=== PATIENT | male | born 1945 ===

== ENCOUNTER 2021-06-06 22:24 | Inpatient (IN) | payer OTHER ==
[~2021-06-06] VITALS: Ht 167.6 cm; Wt 69.7 kg
[2021-06-06 23:16] VITALS: BP 115/76
[2021-06-06] MEDS ORDERED: ACETAMINOPHEN 325 MG TABLET PO PRN (23:30)
[2021-06-06] MEDS ORDERED: POLYETHYLENE GLYCOL 17 GM PACKET PO PRN (23:30)
[2021-06-06] MEDS ORDERED: ONDANSETRON 2MG/ML, 2ML IVPush PRN (23:30)
[2021-06-06] MEDS ORDERED: BISACODYL 10 MG SUPP PR PRN (23:30)
[2021-06-06] MEDS ORDERED: hydrALAzine 20 MG/ML, 1ML IVPush PRN (23:30)
[2021-06-06] MEDS ORDERED: MORPHINE SULFATE 4 MG/ML, 1ML IVPush ONE (23:30)
[2021-06-07] MEDS ORDERED: ATOR20TA86 PO (00:10)
[2021-06-07] MEDS ORDERED: diabetic med (00:10)
[2021-06-07] MEDS: DIAZEPAM 5 MG/ML, 2ML IV PRN ×2 (00:58→17:13)
[2021-06-07] MEDS: SODIUM CHLORIDE 0.9% 1,000 ML IV SCH ×2 (00:59→13:32)
[2021-06-07 02:16] VITALS: BP 117/68
[2021-06-07] MEDS: morphine SULFATE 10 MG/ML, 1ML IVPush PRN ×3 (05:10→20:56)
[2021-06-07 05:31] LABS: BASOPHILS % (AUTO) 0 % (0-1); EOSINOPHILS % (AUTO) 2 % (1-7); LYMPHOCYTES % (AUTO) 18 % (22-44); MEAN CORPUSCULAR HEMOGLOBIN 30.8 pg (27.5-34.5); MEAN CORPUSCULAR HGB CONC 34.1 g/dL (33.2-36.2); MEAN PLATELET VOLUME 7.6 fL (7.4-10.4); MONOCYTES % (AUTO) 16 % (2-9); NEUTROPHILS % (AUTO) 64 % (42-75); PLATELET COUNT 177 x10^3/uL (130-400); RED BLOOD COUNT 3.56 x10^6/uL (4.38-5.82); RED CELL DISTRIBUTION WIDTH 13.6 % (9.4-14.8)
[2021-06-07 05:37] LABS: CHLORIDE 108 mmol/L (98-107)
[2021-06-07 05:41] LABS: ANION GAP 5 mmol/L (5-15); CALCIUM 7.8 mg/dL (8.5-10.1); CREATININE 0.96 mg/dL (0.7-1.3)
[2021-06-07] MEDS: INSULIN LISPRO 100 UNITS/ML, PEN SQ-INSULIN SCH ×5 (07:00→21:00)
[2021-06-07 08:14] VITALS: BP 101/62
[2021-06-07] MEDS: SENNA/DOCUSATE TABLET PO SCH (09:00)
[2021-06-07 14:09] VITALS: BP 120/70
[2021-06-07 18:37] VITALS: BP 123/78
[2021-06-07] MEDS ORDERED: FENTANYL PF 100 MCG/2ML ONE ×2 (19:07→19:56)
[2021-06-07] MEDS ORDERED: PROPOFOL 10 MG/ML, 20ML ONE (19:08)
[2021-06-07] MEDS ORDERED: CEFAZOLIN 1,000 MG ONE (19:08)
[2021-06-07] MEDS ORDERED: SUCCINYLCHOLINE 20 MG/ML, 10ML ONE (19:08)
[2021-06-07] MEDS ORDERED: ROCURONIUM 10 MG/ML,10ML ONE (19:08)
[2021-06-07] MEDS ORDERED: KETOROLAC 30 MG/1 ML IVPush PRN (19:30)
[2021-06-07] MEDS ORDERED: OXYcodone 5 MG/5 ML ORAL.SOL UDC PO PRN (19:30)
[2021-06-07] MEDS ORDERED: PROMETHAZINE 25 MG/ML, 1ML IVPush PRN (19:30)
[2021-06-07] MEDS ORDERED: MEPERIDINE/PF 25MG/0.5ML IVPush PRN (19:30)
[2021-06-07] MEDS ORDERED: HYDROcodone/APAP 7.5-325MG/15ML UDC PO PRN (19:30)
[2021-06-07] MEDS ORDERED: ONDANSETRON 2MG/ML, 2ML IVPush PRN (19:30)
[2021-06-07] MEDS ORDERED: HYDROmorphone 1 MG/ML, 1ML INJ IVPush PRN (19:30)
[2021-06-07] MEDS ORDERED: OXYcodone 5 MG/5 ML ORAL.SOL UDC ONE (19:56)
[2021-06-07] MEDS ORDERED: KETOROLAC 30 MG/1 ML ONE (19:57)
[2021-06-07] MEDS: FENTANYL PF 100 MCG/2ML IV PRN ×2 (20:01→20:11)
[2021-06-07 20:41] VITALS: BP 155/66
[2021-06-07] MEDS ORDERED: ATORVASTATIN 20 MG TABLET PO SCH (21:00)
[2021-06-07] MEDS: ENOXAPARIN 40 MG/0.4 ML SQ SCH (21:40)
[2021-06-08 00:07] VITALS: BP 109/68
[2021-06-08] MEDS: OXYcodone/APAP 5/325MG TABLET PO PRN ×3 (01:56→18:02)
[2021-06-08] MEDS: CEFAZOLIN PMX 2GM/50ML 50 ML IVPB SCH ×2 (03:05→11:34)
[2021-06-08] MEDS ORDERED: KETOROLAC 30 MG/1 ML IV SCH (04:00)
[2021-06-08 04:12] VITALS: BP 101/63
[2021-06-08] MEDS: SODIUM CHLORIDE 0.9% 1,000 ML IV SCH (04:56)
[2021-06-08 05:38] LABS: BASOPHILS % (AUTO) 0 % (0-1); EOSINOPHILS % (AUTO) 2 % (1-7); LYMPHOCYTES % (AUTO) 11 % (22-44); MEAN CORPUSCULAR HEMOGLOBIN 30.8 pg (27.5-34.5); MEAN CORPUSCULAR HGB CONC 34.1 g/dL (33.2-36.2); MEAN PLATELET VOLUME 7.3 fL (7.4-10.4); MONOCYTES % (AUTO) 12 % (2-9); NEUTROPHILS % (AUTO) 75 % (42-75); PLATELET COUNT 160 x10^3/uL (130-400); RED BLOOD COUNT 3.36 x10^6/uL (4.38-5.82); RED CELL DISTRIBUTION WIDTH 13.2 % (9.4-14.8)
[2021-06-08] MEDS: ENOXAPARIN 40 MG/0.4 ML SQ SCH (06:03)
[2021-06-08] MEDS: INSULIN LISPRO 100 UNITS/ML, PEN SQ-INSULIN SCH ×2 (07:00→11:00)
[2021-06-08 08:05] VITALS: BP 116/66
[2021-06-08] MEDS: SENNA/DOCUSATE TABLET PO SCH (11:49)
[2021-06-08] MEDS ORDERED: ASPI-430 PO ×3 (12:15→16:58)
== END 2021-06-08 18:28 | disposition home or self-care (01) | DRG 482 ==
LOC: 4NE 23:14
PROVIDERS: ADMIT Family Medicine; ATTEND Internal Medicine
PROC: 0QS706Z Reposition Left Upper Femur with Intramedullary Internal Fixation Device, Open Approach (ICD-10-PCS; principal; 2021-06-07 19:00)
DX: S72.142A Displaced intertrochanteric fracture of left femur, initial encounter for closed fracture (principal); W11.XXXA Fall on and from ladder, initial encounter; E78.5 Hyperlipidemia, unspecified; D64.9 Anemia, unspecified; E11.9 Type 2 diabetes mellitus without complications; M62.838 Other muscle spasm; Z79.84 Long term (current) use of oral hypoglycemic drugs; Z85.46 Personal history of malignant neoplasm of prostate; Z92.3 Personal history of irradiation; Z88.1 Allergy status to other antibiotic agents; Y93.89 Activity, other specified; Y92.89 Other specified places as the place of occurrence of the external cause; Y99.8 Other external cause status
CPT/HCPCS: 76000; 80048; 82962; 83036; 85025; 93005; C1713; G0378; J0690; J1650; J1885; J2704; J3010; J3360; C1776; J0330; J1815; J2270; J7030